=== PATIENT | male | born 1940 | race Caucasian/White ===

== ENCOUNTER 2019-10-05 17:51 | Emergency (ER) | payer OTHER ==
[~2019-10-05] VITALS: Ht 170.2 cm; Wt 86.2 kg
[2019-10-05 17:59] VITALS: BP 142/78; Ht 170.2 cm; Wt 86.2 kg
[2019-10-05 19:15] LABS: microscopic required? NO
[2019-10-05 19:23] LABS: UA SPECIFIC GRAVITY 1.025 (1.005-1.035); urine erythrocyte NEGATIVE (NEGATIVE)
== END 2019-10-05 19:00 | disposition home or self-care (01) ==
LOC: ED 17:51
PROVIDERS: Emergency Medicine
DX: N39.0 Urinary tract infection, site not specified (principal); I10 Essential (primary) hypertension; E78.5 Hyperlipidemia, unspecified; G89.29 Other chronic pain; R20.0 Anesthesia of skin; E78.00 Pure hypercholesterolemia, unspecified; Z98.890 Other specified postprocedural states

== ENCOUNTER 2020-01-10 18:34 | Emergency (ER) | payer OTHER ==
[~2020-01-10] VITALS: Ht 170.2 cm; Wt 86.6 kg
[2020-01-10 18:51] VITALS: Ht 170.2 cm; Wt 86.6 kg
--- NOTE | 2020-01-10 20:36 | NUR ---
PT CAME TO ED FOR C/O SOB SINCE YESTERDAY. PT IS AAOX4, MILD DISTRESS NOTED. PT ON FULL CM, VSS. PT STATES HE FEELS SOB BUT ABLE TO SPEAK IN FULLLEAR SENTENCES AND O2 SAT @ 99% ON RA. PT STARTED YELLING SAYING "i CANT BREATHE AND I NEED OXYGEN" PT P[LACED ON 2L VIA NC AND O2 SAT NOW @ 100% ON 2L. PT STATES HE HAS HX OF ANXIETY, HTN. PT DENIES FEVER, CHILLS AND CONTACT WITH ANY COVID-19 PT. WAITING MSE, WILL CONTINUE TO MONITOR PT. CALLL TUCKER HARKINS.
--- NOTE | 2020-01-10 20:50 | NUR ---
MD CLARK AT BEDSIDE FOR MSE
--- NOTE | 2020-01-10 21:11 | NUR ---
PT REQUESTING WATWER, PER MD CLARK IT IS OK TO GIVE PT WATER AT THIS TIME.
[2020-01-10 21:18] LABS: BASOPHIL % 0.7 % (0-2); PLATELET COUNT 247 x10^3mcL (130-400)
[2020-01-10 21:19] LABS: RED CELL DISTRIBUTION WIDTH 14.8 % (11.5-14.5)
--- NOTE | 2020-01-10 21:30 | NUR ---
XRAY AT BEDSIDE
[2020-01-10 21:32] LABS: CALCIUM 9.5 mg/dL (8.5-10.1); CARBON DIOXIDE 25.4 mmol/L (21-32); CHLORIDE SERUM 101 mmol/L (98-107); CREATININE SERUM 1.5 mg/dL (0.7-1.3); GLUCOSE SERUM 114 mg/dL (74-106); SODIUM SERUM 139 mmol/L (136-145)
[2020-01-10 21:36] LABS: ALBUMIN 4.2 g/dL (3.4-5.0); ALKALINE PHOSPHATASE 32 U/L (46-116); ALT/SGPT 18 U/L (16-63); AST/SGOT 14 U/L (15-37); BILIRUBIN TOTAL 0.38 mg/dL (0.20-1.00); TOTAL PROTEIN, SERUM 7.4 g/dL (6.4-8.2)
--- NOTE | 2020-01-10 22:17 | NUR ---
PER PT OK TO GIVE ANY AND ALL INFO TO [facility] . SHE CALLED STATED PENDING RESULTS. WILL CALL HER IF PT READY FOR DC.
--- NOTE | 2020-01-10 22:18 | NUR ---
PT STATES HE IS FEELING MUCH BETTER, TRIED TO DECREASAE OXYGEN TO 2L AND PT STATED" NO, DONT TURN IT DOWN, I NEED IT" MD CLARK MADE AWARE. WILL CONTINUE TO MONITOR PT. PT ON CM, VSS.
--- NOTE | 2020-01-10 23:02 | NUR ---
PT BEING TAKEN VIA GURNEY TO CT
--- NOTE | 2020-01-11 00:01 | NUR ---
PT IN BED AAOX4, NAD NOTED. PT ON RA AND TOLERATING WELL. PT ON CM, VSS. RESULTS PENDING. CALL LIGHT WITHIN REACH. WILL CONTINUE TO MONITOR PT.
[2020-01-11] MEDS ORDERED: ECOTRIN81 M2 (00:44)
[2020-01-11] MEDS ORDERED: ATORVASTATIN CA20 M1 PO (00:44)
[2020-01-11] MEDS ORDERED: MICROZIDE12.5 MG PO (00:44)
[2020-01-11] MEDS ORDERED: LASIX20 MG PO (00:46)
--- NOTE | 2020-01-11 00:50 | NUR ---
PT TRIED CALLING TO LET HER KNOW HE IS GETTING ADMITTED. AMARAI WOULD LIKE A CALL BACK WHEN THERE IS A ROOM READY.
--- NOTE | 2020-01-11 01:45 | NUR ---
PT URINATED IN URINAL. PT CLEANED AND IN GOWN. PT IS AAOX4, NAD NOTED. PT ON CM, VSS. WILL OCNTINUE TO MONITOR PT.
--- NOTE | 2020-01-11 02:37 | NUR ---
PT REQUESTED WARM BLANKET, BLANKET GIVEN, PT REPOSITIONED IN BED. PT IS AAOX4, NAD NOTED. CALL LIGHT WITHIN REACH. WILL CONTINUE TO MONITOR.
--- NOTE | 2020-01-11 02:53 | NUR ---
PT STATES " I DONT WANT TO WAIT, ART BEEN HERE A LONG TIME. I WANT TO GO HOME NOW" I ASKED PT IF HE WOULD LIKE TO LEAVE AMA AND POT SAID YES. I CALLED [facility], SPOKE WITH DARLIN AND SHE WILL PAGE MD NAKIA ROMERO AT THIS TIME. WILL WAIT TO HEAR BACK FROM .
--- NOTE | 2020-01-11 03:24 | NUR ---
BRENT ROMERO, TOLD HIM THAT PT WANTS TO LEAVE AMA. PER MD NAKIA ROMERO, OK TO LEAVE AMA LONG ED MD ABLE TO SIGN AMA FORM. PER MD WADDELL, HE WILL SIGN AMA FORM AND DICUSS RISKS OF LEAVING AMA AT THIS TIME.
--- NOTE | 2020-01-11 03:25 | NUR ---
MD SING AT BEDSIDE TO DISCUSS RISKS OF LEAVING AMA.
--- NOTE | 2020-01-11 03:41 | NUR ---
CALLED [facility] AND SHE WILL QUALITY LEAD PT AT THIS TIME.
--- NOTE | 2020-01-11 04:28 | NUR ---
ANI IS HERE AND BROUGHT CLOTHES FOR PT, ASSISTED PT IN CHANGING CLOTHES. PT TAKEN VIA WHEELCHAIR TO [facility] ACCOMPANIED BY EMT SONG.
[2020-01-11 04:29] VITALS: BP 144/68
== END 2020-01-11 04:30 | disposition left against medical advice (07) ==
LOC: ED 18:34 → DU 01-11 00:25
PROVIDERS: Emergency Medicine
DX: R06.00 Dyspnea, unspecified (principal); I27.20 Pulmonary hypertension, unspecified; I10 Essential (primary) hypertension; E78.00 Pure hypercholesterolemia, unspecified
CPT/HCPCS: 36600; 83880; J1650; J2060; Q0092; Q9967

== ENCOUNTER 2020-01-29 23:17 | Observation (INO) | payer OTHER ==
[~2020-01-29] VITALS: Ht 170.2 cm; Wt 88.8 kg
[~2020-01-29 23:17] MED LIST: ATORVASTATIN CA20 M1 PO; ECOTRIN81 M2; LASIX20 MG PO; MICROZIDE12.5 MG PO
--- NOTE | 2020-01-29 23:30 | NUR ---
PATIENT WAS BROUGHT IN BY EMS WITH COMPLAINT OF SOB/ANXIETY. PATIENT IS ALRT/ORIENTED.NO ACUTE DISTRESS. PATIENT WAS SEEN B6Mila DUNBAR.
--- NOTE | 2020-01-30 | NUR ---
SALINE LOCK INSERTED AND THE PATIENT WAS MEDICATED WITH ATIVAN FOR ANXIETY.
[2020-01-30 00:42] LABS: BASOPHIL % 0.8 % (0-2); PLATELET COUNT 228 x10^3mcL (130-400); RED CELL DISTRIBUTION WIDTH 14.1 % (11.5-14.5)
--- NOTE | 2020-01-30 01:04 | NUR ---
PATIENT IS CALM, WAITING FOR RESULTS AND RE-EVALUATION.
[2020-01-30 01:06] LABS: CALCIUM 9.4 mg/dL (8.5-10.1); CARBON DIOXIDE 27.6 mmol/L (21-32); CHLORIDE SERUM 101 mmol/L (98-107); CREATININE SERUM 1.6 mg/dL (0.7-1.3); GLUCOSE SERUM 114 mg/dL (74-106); POTASSIUM SERUM 3.9 mmol/L (3.5-5.1); SODIUM SERUM 139 mmol/L (136-145)
[2020-01-30 01:13] LABS: ALKALINE PHOSPHATASE 28 U/L (46-116); ALT/SGPT 16 U/L (16-63); AST/SGOT 15 U/L (15-37); BILIRUBIN TOTAL 0.3 mg/dL (0.20-1.00); TOTAL PROTEIN, SERUM 7.1 g/dL (6.4-8.2)
--- NOTE | 2020-01-30 02:30 | NUR ---
PATIENT REQUESTED TO GO BATHROOOM,BUT DOES NOT WALK. HE WAS TAKEN IN A WHEECHAIR. HAD BOWEL MOOVEMENT. PATIENT REQUESTED ATIVAN. MEDICATEDW WITH ATIVAN IVP AND PO ASA.
--- NOTE | 2020-01-30 05:27 | NUR ---
REPORT WAS GIVEN TO ROSS.PATIENT TRANSPORTED TO ROOM 240B.
--- NOTE | 2020-01-30 05:40 | NUR ---
PT ADMITTED FROM ED, ARRIVED TO FLOOR VIA GURNEY ACCOMPANIED BY NURSE. PT IS A/O X4, BREATHING REGULAR AND UNLABORED ON ROOM AIR. TELE 23 NSR, DENIES ANY CHEST PAIN/PRESSURE. PT REPORTS SOB WITH EXERTION. PT USES A WHEELCHAIR AT BASELINE, REPORTTS LEFT LEG WEAKNESS. PT USES URINAL, AND BM TODAY, BS X 4 QUADRANTS. PT ABLE TO MAKE NEEDS KNOWN, VERBALIZES UNDERSTANDING OF CALL LIGHT USE AND SAFETY PRECAUTIONS. PIV TO RAC PATENT, NO SIGNS OF INFILTRATION. PT ORIENTED ROOM, BED LOCKED IN LOWEST POSITION, CALL LIGHT WITHIN REACH. WILL CONTINUE TO MONITOR.
[2020-01-30 05:53] VITALS: BP 146/78
[2020-01-30 07:25] VITALS: BP 140/55
[2020-01-30] MEDS ORDERED: ADALAT CC30 MG PO (09:29)
[2020-01-30 10:03] VITALS: BP 140/55
--- NOTE | 2020-01-30 11:14 | NUR ---
PATIENT IS AOX4, SR WITH LBB, RESPIRATIONS EVEN AND UNLABORED ON ROOM AIR 97%. PATIENT REPORTS SHORTNESS OF BREATH ON EXERTION, CURRENTLY LUNGS ARE CLEAR TO AUSCULTATION. +1 EDEMA IN BILATERAL LOWER EXREMITIES. REPORTS GENERALIZED WEAKNESS IN BILATERAL LOWER EXTREMITIES. SEEN BY DR. ROMERO AND NOTIFIED OF DISCHARGE. INSTRUCTIONS GIVEN TO PATIENT INCLUDING NEW MEDICATIONS AND SIGNS/SYMPTOMS TO REPORT. PATIENT VERBALIZED UNDERSTANDING. SENT TO LOBBY IN WHEELCHAIR AND PICKED UP BY .
== END 2020-01-30 11:05 | disposition home or self-care (01) ==
LOC: ED 23:17 → DU 01-30 04:05
PROVIDERS: Emergency Medicine; ADMIT Internal Medicine; ATTEND Internal Medicine
DX: R06.00 Dyspnea, unspecified (principal); I10 Essential (primary) hypertension; E78.00 Pure hypercholesterolemia, unspecified; I27.20 Pulmonary hypertension, unspecified
CPT/HCPCS: 83880; G0378; J1644; J2060; Q0092